=== PATIENT | female | born 1995 ===

== ENCOUNTER 2017-04-19 04:47 | Emergency (ER) | payer OTHER ==
[2017-04-19 04:48] VITALS: BMI 27.3
--- NOTE | 2017-04-19 05:05 | C.PDOC ---
History Of Present Illness Patient presents to the ER with a complaint of RLQ pain, nausea, and vomiting that began yesterday and has worsened tonight. Denies fever or chills. Time Seen by Provider: 04/19/17 05:04 Chief Complaint (Nursing): Abdominal Pain History Per: Patient History/Exam Limitations: no limitations Onset/Duration Of Symptoms: Days Current Symptoms Are (Timing): Still Present Severity: Mild Pain Scale Rating Of: 4 Location Of Pain/Discomfort: RLQ Radiation Of Pain To:: None Quality Of Discomfort: Unable To Describe Associated Symptoms: Nausea, Vomiting. denies: Fever, Chills Exacerbating Factors: None Alleviating Factors: None Recent travel outside of the [place]: No Abnormal Vaginal Bleeding: No Past Medical History Reviewed: Historical Data, Nursing Documentation, Vital Signs Vital Signs: Last Vital Signs Temp 97.9 F 04/19/17 04:56 Pulse 83 04/19/17 04:56 Resp 20 04/19/17 04:56 BP 103/74 04/19/17 04:56 Pulse Ox 95 04/19/17 05:27 - Medical History PMH: No Chronic Diseases Surgical History: No Surg Hx Family History: States: No Known Family Hx - Social History Hx Alcohol Use: No Hx Substance Use: No - Immunization History Hx Tetanus Toxoid Vaccination: No Hx Influenza Vaccination: No Hx Pneumococcal Vaccination: No Review Of Systems Constitutional: Negative for: Fever, Chills Gastrointestinal: Positive for: Nausea, Vomiting, Abdominal Pain Physical Exam - Physical Exam Appears: Non-toxic Skin: Warm, Dry Head: Normacephalic Oral Mucosa: Moist Chest: Symmetrical Cardiovascular: Rhythm Regular Respiratory: No Rales, No Rhonchi, No Wheezing Gastrointestinal/Abdominal: Soft, Tenderness (RLQ), No Guarding, No Rebound Neurological/Psych: Oriented x3 ED Course And Treatment - Laboratory Results Result Diagrams: 04/19/17 05:22 04/19/17 05:22 O2 Sat by Pulse Oximetry: 95 (Room air) Pulse Ox Interpretation: Normal Progress Note: Blood work and urinalysis ordered. Morphine, pepcid, IV fluids, and zofran administered. Disposition Counseled Patient/Family Regarding: Studies Performed, Diagnosis - Disposition Disposition Time: 05:05 Condition: FAIR Forms: [employer] [facility] (Frisian) - Clinical Impression Clinical Impression: Abdominal pain - Scribe Statement The provider has reviewed the documentation as recorded by the Scribwarren Lindo All medical record entries made by the Scribwarren were at my direction and personally dictated by me. I have reviewed the chart and agree that the record accurately reflects my personal performance of the history, physical exam, medical decision making, and the department course for this patient. I have also personally directed, reviewed, and agree with the discharge instructions and disposition. Physician Patient Turnover Patient Signed Over To: Keily Rhodes Handoff Comments: pending ct result and disposition
[2017-04-19] MEDS ORDERED: Sodium Chloride 0.9% 1,000 ML IV ONE ×2 (05:09→07:23)
[2017-04-19] MEDS ORDERED: Sodium Chloride 0.9% 1,000 ML ONE ×2 (05:19→07:42)
[2017-04-19 05:24] LABS: BASO # 0.1 K/uL (0.0-0.2); BASO % 0.6 % (0.0-2.0); EOS # 0.1 K/uL (0.0-0.7); EOS % 1.4 % (0.0-4.0); HEMATOCRIT 37.4 % (34.0-47.0); LYMPH # 2.7 K/uL (1.0-4.3); LYMPH % 33.3 % (20.0-40.0); MEAN CELL VOLUME 88.4 fL (81.0-99.0); MEAN CORPUSCULAR HEMOGLOBIN 29.6 pg (27.0-31.0); MEAN CORPUSCULAR HGB CONC 33.5 g/dL (33.0-37.0); MEAN PLATELET VOLUME 7.5 fL (7.2-11.7); MONO # 0.9 K/uL (0.0-0.8); MONO % 10.8 % (0.0-10.0); RED CELL DISTRIBUTION WIDTH 13.8 % (11.5-14.5); WHITE BLOOD COUNT 8.1 K/uL (4.8-10.8)
[2017-04-19 05:26] LABS: RBC URINE 5 /hpf (0-3); URINE BACTERIA RARE (<OCC); URINE BILIRUBIN NEGATIVE (NEGATIVE); URINE BLOOD 1+ (NEGATIVE); URINE COLOR Yellow (YELLOW); URINE GLUCOSE (UA) NORMAL (Normal); URINE KETONE NEGATIVE (NEGATIVE); URINE LEUKOCYTE ESTERASE 3+ Leu/uL (Negative); URINE PROTEIN NEGATIVE (NEGATIVE); URINE UROBILINOGEN NORMAL mg/dL (0.2-1.0); WBC CLUMPS FEW /hpf; WBC URINE 48 /hpf (0-5)
[2017-04-19] MEDS ORDERED: Piperacillin/Tazobact 3.375 gm 100 ML IVPB STA (05:36)
[2017-04-19] MEDS ORDERED: Iodixanol 320 MG/ML 100 ML BOTTLE IV ONE (05:48)
[2017-04-19] MEDS ORDERED: Piperacillin/Tazobact 3.375 gm 100 ML IVPB ONE (05:48)
[2017-04-19 06:12] LABS: CHLORIDE 102 mmol/L (98-107); SODIUM 141 mmol/L (132-148)
[2017-04-19 06:14] LABS: GFR AFRICAN-AMERICAN > 60
[2017-04-19 06:15] LABS: ALKALINE PHOSPHATASE 70 U/L (38-126); ALT/SGPT 31 U/L (9-52); AST/SGOT 14 U/L (14-36); BILIRUBIN,TOTAL 0.3 mg/dL (0.2-1.3); BLOOD UREA NITROGEN 12 mg/dL (7-17); CARBON DIOXIDE 23 mmol/L (22-30); GLUCOSE,RANDOM 84 mg/dL (65-105); TOTAL PROTEIN 8.3 g/dL (6.3-8.3)
[2017-04-19 06:16] LABS: CALCIUM 8.5 mg/dl (8.6-10.4)
--- NOTE | 2017-04-19 07:00 | CT ---
EXAM: CT Abdomen and Pelvis With Intravenous Contrast EXAM DATE/TIME: 04/19/2017 5:36 AM CLINICAL HISTORY: 21 years old, female; Pain; Abdominal pain; Additional info: Rlq pain TECHNIQUE: Axial computed tomography images of the abdomen and pelvis with intravenous contrast. All CT scans at this facility use one or more dose reduction techniques, viz.: automated exposure control; ma/kV adjustment per patient size (including targeted exams where dose is matched to indication; i.e. head); or iterative reconstruction technique. Coronal and sagittal reformatted images were created and reviewed. CONTRAST: 100 mL of [id number] administered intravenously. COMPARISON: No relevant prior studies available. FINDINGS: Lower thorax: Mild dependent changes in posterior lower lobes. ABDOMEN: Liver: Unremarkable. No mass. Gallbladder and bile ducts: Unremarkable. No calcified stones. No ductal dilation. Pancreas: Unremarkable. No mass. No ductal dilation. Spleen: Unremarkable. No splenomegaly. Adrenals: Unremarkable. No mass. Kidneys and ureters: Unremarkable. No solid mass. No hydronephrosis. Stomach and bowel: Moderate increased fecal material in ascending and proximal transverse colon. No dilatation of small or large bowel. No mucosal thickening. Appendix: Normal. PELVIS: Bladder: Unremarkable. No mass. Reproductive: Unremarkable as visualized. No adnexal mass. ABDOMEN and PELVIS: Intraperitoneal space: Unremarkable. No free air. No significant fluid collection. Bones/joints: No acute fracture. Soft tissues: Unremarkable. Vasculature: Unremarkable. No abdominal aortic aneurysm. Lymph nodes: No enlarged lymph nodes. IMPRESSION: No acute abnormality. Normal appendix.
[2017-04-19 07:47] VITALS: RESP 16
[2017-04-19 08:23] VITALS: O2SAT 98
[2017-04-19 08:58] VITALS: BP 98/60; PULSE 68; TEMP 98
== END 2017-04-19 08:57 | disposition home or self-care (01) ==
LOC: C.ER 04:47
DX: R10.31 Right lower quadrant pain (principal)
CPT/HCPCS: 74177; 80053; 81001; 83690; 84703; 85025; 85610; 85730; 96361; 96365; 96375; 99285; J2270; J2405; J2543; J7040; Q9967

== ENCOUNTER 2017-06-30 17:25 | Emergency (ER) | payer OTHER ==
[2017-06-30 17:25] VITALS: BMI 28.0
[2017-06-30 17:31] VITALS: BP 110/57; PULSE 74; RESP 20; TEMP 98.1; O2SAT 99
--- NOTE | 2017-06-30 18:00 | C.PDOC ---
History Of Present Illness complains of suprapubic pressure like pain associated with urinary frequency since yesterday. Additionally patient states she took test yesterday which was positive. her last menses was 05/22/17. She recent went to [facility] for her normal checkup and had pap smear, preg test negative at that time. She has one prior and vaginal delivery. Denies any fever, vomiting, vaginal discharge, bleeding. Time Seen by Provider: 06/30/17 17:34 Chief Complaint (Nursing): Abdominal Pain History Per: Patient History/Exam Limitations: no limitations Current Symptoms Are (Timing): Still Present Quality Of Discomfort: Pressure Associated Symptoms: Urinary Symptoms Past Medical History Reviewed: Historical Data, Nursing Documentation, Vital Signs Vital Signs: Last Vital Signs Temp 98.1 F 06/30/17 17:28 Pulse 74 06/30/17 17:28 Resp 20 06/30/17 17:28 BP 110/57 L 06/30/17 17:28 Pulse Ox 99 06/30/17 18:34 - Medical History PMH: No Chronic Diseases Surgical History: No Surg Hx Family History: States: No Known Family Hx - Social History Hx Alcohol Use: No Hx Substance Use: No - Immunization History Hx Tetanus Toxoid Vaccination: No Hx Influenza Vaccination: No Hx Pneumococcal Vaccination: No Review Of Systems Constitutional: Negative for: Fever, Chills Gastrointestinal: Positive for: Abdominal Pain. Negative for: Nausea, Vomiting Genitourinary: Positive for: Frequency. Negative for: Vaginal Discharge, Vaginal Bleeding Skin: Negative for: Rash Physical Exam - Physical Exam Appears: Non-toxic, No Acute Distress Skin: Normal Color, Warm, Dry, No Rash Head: Atraumatic, Normacephalic Eye(s): bilateral: PERRL, EOMI Oral Mucosa: Moist Neck: Supple Chest: Symmetrical, No Tenderness Cardiovascular: Rhythm Regular Respiratory: No Rales, No Rhonchi, No Wheezing, Other (Clear to auscultation) Gastrointestinal/Abdominal: Soft, No Tenderness, No Guarding, No Rebound Back: No CVA Tenderness Extremity: Normal ROM, Capillary Refill (<2 seconds) Neurological/Psych: Oriented x3 Gait: Steady ED Course And Treatment O2 Sat by Pulse Oximetry: 99 (RA) Pulse Ox Interpretation: Normal Medical Decision Making Medical Decision Making: Impression: urinary frequency, Plan: UA and Progress: UA shows By dates patient is at least 5 weeks . She has no vaginal bleeding or other complaints. Patient is stable for discharge and advised to follow up with [facility] for further evaluation of and US should be at 12 weeks. Disposition - Disposition Referrals: [facility] [Outside] [facility] [Outside] [facility] [Outside] Disposition: HOME/ ROUTINE Disposition Time: 17:50 Condition: GOOD Additional Instructions: Tu orina muestra que ests embarazada Es importante que isiah un seguimiento con un gineclogo Puede grant Tylenol por cualquier dolor. Regrese al departamento de emergencia en cualquier momento si los sntomas persisten o empeoran. 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 - Scribe Statement The provider has reviewed the documentation as recorded by the Scribe Shaquille Ontiveros All medical record entries made by the Jonathanibwarren were at my direction and personally dictated by me. I have reviewed the chart and agree that the record accurately reflects my personal performance of the history, physical exam, medical decision making, and the department course for this patient. I have also personally directed, reviewed, and agree with the discharge instructions and disposition.
[2017-06-30 18:01] LABS: RBC URINE 1 /hpf (0-3); URINE BACTERIA RARE (<OCC); URINE BILIRUBIN NEGATIVE (NEGATIVE); URINE BLOOD NEGATIVE (NEGATIVE); URINE COLOR Straw (YELLOW); URINE GLUCOSE (UA) NORMAL (Normal); URINE KETONE NEGATIVE (NEGATIVE); URINE LEUKOCYTE ESTERASE NEG Leu/uL (Negative); URINE PROTEIN NEGATIVE (NEGATIVE); URINE UROBILINOGEN NORMAL mg/dL (0.2-1.0); WBC URINE 3 /hpf (0-5)
== END 2017-06-30 18:35 | disposition home or self-care (01) ==
LOC: C.ER 17:25
DX: Z32.01 Encounter for pregnancy test, result positive (principal)

== ENCOUNTER 2017-09-01 12:15 | Emergency (ER) | payer OTHER ==
[2017-09-01 12:15] VITALS: BMI 28.0
[2017-09-01 12:52] VITALS: BP 103/65; PULSE 85; RESP 20; TEMP 97.8; O2SAT 99
--- NOTE | 2017-09-01 13:03 | C.PDOC ---
History Of Present Illness 21-year-old female, presents to the emergency department with complaints of sore throat, left ear pain, cough and congestion since yesterday. Denies fevers , chills, SOB, sputum, abdominal pain, vomiting or diarrhea Time Seen by Provider: 09/01/17 12:50 Chief Complaint (Nursing): ENT Problem History Per: Patient History/Exam Limitations: no limitations Onset/Duration Of Symptoms: Days (1) Current Symptoms Are (Timing): Still Present Past Medical History Reviewed: Historical Data, Nursing Documentation, Vital Signs Vital Signs: Last Vital Signs Temp 97.8 F 09/01/17 12:49 Pulse 85 09/01/17 12:49 Resp 20 09/01/17 12:49 BP 103/65 09/01/17 12:49 Pulse Ox 99 09/01/17 16:08 Family History: States: No Known Family Hx - Social History Hx Alcohol Use: No Hx Substance Use: No - Immunization History Hx Tetanus Toxoid Vaccination: No Hx Influenza Vaccination: No Hx Pneumococcal Vaccination: No Review Of Systems Except As Marked, All Systems Reviewed And Found Negative. Constitutional: Negative for: Fever, Chills ENT: Positive for: Ear Pain, Nose Congestion, Throat Pain Cardiovascular: Negative for: Chest Pain Respiratory: Positive for: Cough. Negative for: Shortness of Breath, Sputum Gastrointestinal: Negative for: Nausea, Vomiting Musculoskeletal: Negative for: Neck Pain Skin: Negative for: Rash Neurological: Negative for: Weakness, Headache, Dizziness Physical Exam - Physical Exam Appears: Non-toxic, No Acute Distress Skin: Warm, Dry, No Diaphoretic, No Rash Head: Atraumatic, Normacephalic Eye(s): bilateral: Normal Inspection, EOMI Ear(s): Bilateral: Normal (no erythema) Nose: Normal Oral Mucosa: Moist Lips: Normal Appearing Throat: No Erythema, No Exudate Neck: Normal ROM, Trachea Midline, Supple Chest: Symmetrical Cardiovascular: Rhythm Regular, No Murmur Respiratory: Normal Breath Sounds, No Accessory Muscle Use, No Rales, No Rhonchi , No Wheezing Extremity: Normal ROM, No Tenderness, No Deformity, No Swelling Neurological/Psych: Oriented x3, Normal Speech Gait: Steady ED Course And Treatment O2 Sat by Pulse Oximetry: 99 (room air) Pulse Ox Interpretation: Normal Medical Decision Making Medical Decision Making: Patient with multi-symptom complaints, likely viral. Patient appears non-toxic and in no distress. Clinical signs and symptoms are not suggestive sepsis, meningitis, UTI, pneumonia, intra-abdominal pathology, or cellulitis. Rx given. Patient advised to rest, drink fluids and take medications for supportive treatment. Patient stable for discharge and given follow up instructions. Disposition Counseled Patient/Family Regarding: Diagnosis, Need For Followup, Rx Given - Disposition Disposition: HOME/ ROUTINE Disposition Time: 13:35 Condition: GOOD Additional Instructions: You have viral upper respiratory infection. Take Tylenol or Motrin alternating every 4-6 hours for Fever 100.4F or higher. Rest and drink plenty of fluids. May use cool mist humidifier or vaporizer in room. Take Cough medicine as needed every 6-8 hours. Follow up with your primary medical doctor or clinic in 1 week for further evaluation. Usted tiene stephanie infeccin viral de las vas respiratorias superiores. [place] Tylenol o Motrin alternando cada 4-6 horas para Fiebre 100.4F o superior. Descansa y diana muchos lquidos. Puede usar humidificador de vapor fro o vaporizador en la habitacin. [place] el medicamento para la tos segn sea necesario cada 6-8 horas. Arlyn un seguimiento con shore mdico primario o clnica en 1 semana para stephanie evaluacin adicional. Prescriptions: Benzocaine/Menthol [Cepacol Sore Throat] 1 drea MM Q2 #30 drea Benzonatate [Tessalon Perles] 100 mg PO TID #30 sgl Fluticasone Propionate [Flonase] 1 spray NS DAILY #1 bottle Ibuprofen [Motrin] 1 tab PO TID PRN #30 tab PRN Reason: Pain Instructions: Viral Upper Respiratory Infection, Adult (DC) Forms: [employer] (Maori), [employer] (Mozambican), Work Excuse Print Language: KINYARWANDA - POA Present On Arrival: None - Clinical Impression Clinical Impression: URI, acute - Scribe Statement The provider has reviewed the documentation as recorded by the Scribe (Jose Vidales) All medical record entries made by the Scribe were at my direction and personally dictated by me. I have reviewed the chart and agree that the record accurately reflects my personal performance of the history, physical exam, medical decision making, and the department course for this patient. I have also personally directed, reviewed, and agree with the discharge instructions and disposition.
== END 2017-09-01 13:40 | disposition home or self-care (01) ==
LOC: C.ER 12:15
DX: J06.9 Acute upper respiratory infection, unspecified (principal)

== ENCOUNTER 2018-03-03 21:00 | Emergency (ER) | payer OTHER, SELFPAY ==
[2018-03-03 21:01] VITALS: BMI 28.0
[2018-03-03 21:14] VITALS: RESP 20
[2018-03-03] MEDS ORDERED: Sodium Chloride 0.9% 1,000 ML IV ONE (21:42)
[2018-03-03 21:57] LABS: SQUAMOUS EPITHIAL 1 /hpf (0-5); URINE BACTERIA RARE (<OCC); URINE BILIRUBIN NEGATIVE (NEGATIVE); URINE BLOOD NEGATIVE (NEGATIVE); URINE CLARITY Hazy (Clear); URINE COLOR Yellow (YELLOW); URINE GLUCOSE (UA) NORMAL (Normal); URINE LEUKOCYTE ESTERASE NEG Leu/uL (Negative); URINE PROTEIN NEGATIVE (NEGATIVE)
[2018-03-03 22:00] LABS: HCG,QUALITATIVE URINE NEGATIVE (NEGATIVE)
[2018-03-03] MEDS ORDERED: Sodium Chloride 0.9% 1,000 ML ONE (22:17)
[2018-03-03 22:21] LABS: BASO # 0.1 K/uL (0.0-0.2); BASO % 0.7 % (0.0-2.0); EOS # 0.1 K/uL (0.0-0.7); EOS % 1.1 % (0.0-4.0); HEMOGLOBIN 10.8 g/dL (11.0-16.0); LYMPH # 2.6 K/uL (1.0-4.3); LYMPH % 34.5 % (20.0-40.0); MEAN CELL VOLUME 86.9 fL (81.0-99.0); MEAN CORPUSCULAR HEMOGLOBIN 28.7 pg (27.0-31.0); MEAN CORPUSCULAR HGB CONC 33.1 g/dL (33.0-37.0); MEAN PLATELET VOLUME 7.9 fL (7.2-11.7); NEUT # 3.8 K/uL (1.8-7.0); NEUT % 50.7 % (50.0-75.0); RBC 3.76 Mil/uL (3.80-5.20); RED CELL DISTRIBUTION WIDTH 14.3 % (11.5-14.5); WHITE BLOOD COUNT 7.4 K/uL (4.8-10.8)
[2018-03-03 22:35] LABS: ALB/GLOB RATIO 1.4 (1.0-2.1); ALBUMIN 4.1 g/dL (3.5-5.0); ALT/SGPT 30 U/L (9-52); AST/SGOT 15 U/L (14-36); BLOOD UREA NITROGEN 14 mg/dL (7-17); CALCIUM 8.8 mg/dl (8.6-10.4); GFR AFRICAN-AMERICAN > 60; GFR NON-AFRICAN AMERICAN > 60; LIPASE 58 U/L (23-300)
--- NOTE | 2018-03-03 22:54 | C.PDOC ---
History Of Present Illness 22 year old female presents to the ED c/o left lateral chest wall and colic like pain to the left side abdomen for the past 2 days. 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 Patient states she use a broom and shovel frequently. Patient also states she has a high constipated diet and drinks water soda. Patient denies injury, fall, trauma, nausea, vomit, diarrhea, fever , chills. Time Seen by Provider: 03/03/18 21:37 Chief Complaint (Nursing): Abdominal Pain History Per: Patient History/Exam Limitations: no limitations Onset/Duration Of Symptoms: Days (2) Current Symptoms Are (Timing): Still Present Context: Food Location Of Pain/Discomfort: LUQ, LLQ Radiation Of Pain To:: Chest Quality Of Discomfort: "Pain" Associated Symptoms: Chest Pain. denies: Nausea, Vomiting, Diarrhea, Urinary Symptoms Exacerbating Factors: None Alleviating Factors: None Recent travel outside of the [place]: No Additional History Per: Patient Abnormal Vaginal Bleeding: No Past Medical History Reviewed: Historical Data, Nursing Documentation, Vital Signs Vital Signs: Last Vital Signs Temp 98 F 03/03/18 21:10 Pulse 76 03/03/18 21:10 Resp 20 03/03/18 21:10 BP 136/83 03/03/18 21:10 Pulse Ox 98 03/03/18 22:54 - Medical History PMH: No Chronic Diseases Surgical History: No Surg Hx Family History: States: Unknown Family Hx - Social History Hx Alcohol Use: No Hx Substance Use: No - Immunization History Hx Tetanus Toxoid Vaccination: No Hx Influenza Vaccination: No Hx Pneumococcal Vaccination: No Review Of Systems Constitutional: Negative for: Fever, Chills Eyes: Negative for: Vision Change Cardiovascular: Positive for: Chest Pain. Negative for: Palpitations Respiratory: Negative for: Cough, Shortness of Breath Gastrointestinal: Positive for: Abdominal Pain. Negative for: Nausea, Vomiting , Diarrhea Musculoskeletal: Negative for: Back Pain Skin: Negative for: Rash Neurological: Negative for: Weakness, Numbness Physical Exam - Physical Exam Appears: Non-toxic, No Acute Distress Skin: Normal Color, Warm, Dry Head: Atraumatic, Normacephalic Eye(s): bilateral: Normal Inspection Neck: Normal ROM, Supple Chest: Symmetrical, Tenderness (left parasternal area around area of T4 and T5) Cardiovascular: Rhythm Regular Respiratory: Normal Breath Sounds, No Rales, No Rhonchi, No Wheezing Gastrointestinal/Abdominal: Soft, No Tenderness, No Guarding, No Rebound, Other (tympanic to percussion on the left side. Negative murphys and mcburneys) Extremity: Normal ROM, No Tenderness, No Swelling Neurological/Psych: Oriented x3, Normal Speech Gait: Steady ED Course And Treatment - Laboratory Results Result Diagrams: 03/03/18 22:15 03/03/18 22:15 Lab Interpretation: Normal (ua neg.) Urine POC: Negative ECG: Interpreted By Me, Viewed By Me ECG Rhythm: Sinus Rhythm Rate From EC (BPM) O2 Sat by Pulse Oximetry: 98 (ON RA) Pulse Ox Interpretation: Normal - Radiology CXR: Interpreted by Me CXR Interpretation: Yes: No Acute Disease - Other Rad abd x 2 X-Ray: Interpreted by Me (+FOS/gas) Reevaluation Time: 22:53 Reassessment Condition: Improved Medical Decision Making Medical Decision Making: Plan: * EKG * Labs * Toradol 30 mg IVP * IV fluids * Obstructive series X-ray * UA L chest wall discomfort working construction and cleaning costochondritis L abd colic increased stool and gas normal labs/UA/preg neg. Disposition Doctor Will See Patient In The: Office Counseled Patient/Family Regarding: Studies Performed, Diagnosis - Disposition Referrals: [facility] [Outside] [facility]Outside[facility] Disposition: HOME/ ROUTINE Disposition Time: 22:54 Condition: GOOD Additional Instructions: dolor del pared del pecho bolsa de hielo 1/2 hora por hora ibuprofeno 400-600 mg cada 6 horas jatinder necessario Colico abdominal [place]ren[place] y gasses Leatha un purgante ahora y re-evalua despues de usar el romelia 2-3 veces Sigue en la [facility] jatinder necessario. Instructions: Costochondritis, Gas and Bloating (ED) Forms: [employer] (Serbian) Print Language: FAROESE - Clinical Impression Clinical Impression: Colicky LLQ abdominal pain, Chest wall discomfort - Scribe Statement The provider has reviewed the documentation as recorded by the Scribe Marco Padron All medical record entries made by the Scribe were at my direction and personally dictated by me. I have reviewed the chart and agree that the record accurately reflects my personal performance of the history, physical exam, medical decision making, and the department course for this patient. I have also personally directed, reviewed, and agree with the discharge instructions and disposition.
[2018-03-03 23:43] VITALS: BP 128/70; PULSE 82; TEMP 97.8; O2SAT 99
--- NOTE | 2018-03-04 07:56 | RAD ---
Abdomen three views History: Abdominal pain. Comparison: None available. Findings: Lung mcdowell are clear. Heart size within normal limits. Bibasilar breast and nipple shadows. Fecal retention in the colon. No evidence of gross obstruction. Impression: Fecal retention in the colon.
--- NOTE | 2018-03-06 08:03 | CARD ---
APPROVED REPORT Date of service: 03/03/2018 EKG Measurement Heart [id number] <Conclusion> Normal sinus rhythm Incomplete right bundle branch block Borderline ECG
== END 2018-03-03 23:42 | disposition home or self-care (01) ==
LOC: C.ER 21:00
DX: R07.89 Other chest pain (principal); R10.32 Left lower quadrant pain
CPT/HCPCS: 74022; 80053; 81001; 83690; 84484; 84703; 85025; 93005; 96361; 96374; 99284; J1885; J7030